=== PATIENT | male | born 1960 | race Caucasian/White ===

== ENCOUNTER 2021-01-24 01:12 | Observation (INO) | payer BC, OTHER, SELFPAY ==
--- OUTSIDE RECORDS SUMMARY | 2021-01-24 01:16 | XMS REPORT | Continuity of Care Document ---
:1960 Author Organization [facility] t Address [address] [place] [address] Care Team Providers Name Role Phone Unavailable Unavailable Unavailable Payers Payer Name Policy Type Policy Number Effective Date Expiration Date S ource Problems This patient has no known problems. Allergies, Adverse Reactions, Alerts Allergy Allergy Status Severity Reaction(s) Onset Inactive Treating Comm ents Source Name Type Date Date Clinician No Known DA Active U 2019-11 [facility] 0 [facility] 00:00: [facility] 00 are [place] Medications This patient has no known medications. Procedures This patient has no known procedures. Results Test Description Test Time Test Comments Results Result Comments Source TROPONIN-I 2020-09-20 12:27:00 Test Item Value Reference Range Interpretation Comme nts TROPONIN-I (test code = 0.03 ng/mL 0.00-0.03 N Shanell elation with serial results, TROPI) other cardiac m arkers andclinical findings is nec essary to determine the clinicalsig nificance of this result. Results using different methodologies s hould not be comparedto one another as quantitative re sults may vary by method. [id number] 10:08:00 Test Item Value Reference Range Interpretation Comments TROPONIN-I 0.03 ng/mL 0.00-0.03 N Correlation wit h serial (test code = results, other cardiac TROPI) markers andclin ical findings is necessary to determine the clinicalsignifi cance of this result. Results using different metho dologies should not be c omparedto one another as frieda titative results may raysa y by method. [id number] 07:45:00 Test Item Value Reference Range Interpretation Comments TROPONIN-I 0.03 ng/mL 0.00-0.03 N Correlation wit h serial (test code = results, other cardiac TROPI) markers andclin ical findings is necessary to determine the clinicalsignifi cance of this result. Results using different metho dologies should not be c omparedto one another as frieda titative results may raysa y by method. LIPID PROFILE (CORONARY RISK)2020-09-20 04:41:00 Test Item Value Reference Range Interpretation Comments TRIGLYCERIDES (test 324 mg/dL 35-160 H N-acetyl -p-benzoquinone code = TRIG) imine (NAPQI), a metabolite ofacetaminophen (paracetamol), may generate errone ously lowresults in s amples for patients th at have taken toxic dos esof acetaminophen (paracetamol). CHOLESTEROL (test 185 mg/dL 50-200 N code = CHOL) HDL CHOLESTEROL (test 34 mg/dL 29-71 N code = HDL) LIPOPROTEIN LDL MIS 86 MG/DL 10-130 N (test code = LDLC) CORONARY RISK FACTOR 5.44 (test code = RISK) CHOL/HDL RISK MALE: 1/2 AVG 3.43 FEMALE: 1/2 AV G 3.27 AVG 4.97 AV G 4.44 2X AVG 9.55 2X AV G 7.05 3X AVG 23.39 3X AVG 11.04~~~~~~~~~~ ~~~~~~~~ ~~~~~~~~~~~~~~~ ~~~~~~~~ ~~~~~~~~~~~~~~~ ~~~~Kelly onal Cholestero l Education (NCEP ) Guidelines:~~~~ ~~~~~~~~ ~~~~~~~~~~~~~~~ ~~~~~~~~ ~~~~~~~~~~~~~~~ ~~~~~~~~ ~~ HDL Cholesterol<4 0mg/dL: HDL Cholesterol (Major risk factor for CHD)>60mg/dL: H DL Cholesterol (Ne gative risk factor for CHD)40-59mg/dL: Borderline Risk LD L Cholesterol<1 00mg/dL: Desirable LDL-C [id number] 0-159mg/ dL: Borderline High Risk LDL-C [id number] 0-189mg/ dL: High risk L DL-C concentration H DL-LDL Cholesterol is affected by a number of factors suchas smoking, age and sex.~~~~~~~~~~~ ~~~~~~~~ ~~~~~~~~~~~~~~~ ~~~~~~~~ ~~~~~~~~~~~~~~~ ~~~ B-TYPE NATRIURETIC [id number] 04:17:00 Test Item Value Reference Range Interpretation Comments B-TYPE NATRIURETIC PEPTIDE (test 123 pg/mL 5-100 H code = BNP) - XR CHEST 1 [id number] 04:12:[address] [facility] 1960 Sex: MPatient Name: VAN AMARAL Unit No: [id number] EXAMS: CPT: [id number] XR CHEST 1 V [id number] PORTABLE CHEST, 09/20/2020. Comparison: None. CLINICAL: Palpitations. COMMENT: The heart, mediastinum, hilar regions and pulmonary vasculature appear within normal limits. The lungs are free of active disease. The bony thorax is intact. IMPRESSION: No evidence to suggest active cardiopulmonary disease. at 0412 Reported and signed by: Cayden Frederick MD CC: Technologist: Marek Siegel Fluoro Time: DAP (Gy m2): Air Kerma (mGy): Trscr Dt/Tm: 09/20/2020 (041) by:[email or web address] Orig Print D/T: S: 09/20/2020 (0415) BATCH NO: N/A Name: VAN AMARAL [facility] Roby Phys: James Thompson [address] [facility] : 1960 Age: 60 Sex: M Dashawn Ca Loc: T.ERS Exam Date: 09/20/2020 Status: REG ER PH: FAX: PAGE 1 Signed ReportCOMPREHENSIVE METABOLIC PANEL 2020-09-20 03:59:00 Test Item Value Reference Range Interpretation Comments SODIUM (test code 138 mmol/L 136-145 N = NA) POTASSIUM (test 4.2 MMOL/L 3.6-5.2 N code = K) CHLORIDE (test 107 MMOL/L 98-110 N code = CL) CARBON DIOXIDE 21 mEq/L 24-32 L (test code = CO2) GLUCOSE (test code 117 mg/dL 70-110 H = GLU) BLOOD UREA 14 mg/dL 7-18 N NITROGEN (test code = BUN) GLOMERULAR >=60 max >60 The estimated FILTRATION RATE estimate glomerular f iltration (test code = GFR) rate is co mputed usingpatient ra ce, age (>18), sex, and serum creatinin e. If anyof the neede d data elements are mi ssing the Laboratory cannot compute an evelin mation of the glomerul ar filtration rate . CREATININE (test 0.82 mg/dL 0.60-1.30 N code = CREAT) TOTAL PROTEIN 7.0 g/dL 6.0-8.3 N (test code = PROT) ALBUMIN (test code 4.0 g/dL 3.2-5.5 N = ALB) CALCIUM (test code 8.4 mg/dL 8.6-10.3 L = CA) BILIRUBIN TOTAL 0.5 mg/dL 0.2-1.0 N J-cddonb-t-b enzoquino (test code = BILT) ne imine (NAPQI), a metabolite ofacetaminophen (paracetamol), may generate errone ously lowresults in s amples for patients th at have taken toxi c dosesof acetami nophen (paracetamol). SGOT/AST (test 22 UNITS/L 10-42 N code = AST) SGPT/ALT (test 21 UNITS/L 10-40 N code = ALT) ALKALINE 74 UNITS/L 38-126 N PHOSPHATASE (test code = ALKP) [id number] 03:59:00 Test Item Value Reference Range Interpretation Comments MAGNESIUM (test code = MAG) 2.1 mg/dL 1.7-2.8 N THYROID STIMULATING [id number] 03:59:00 Test Item Value Reference Range Interpretation Comments THYROID STIMULATING HORMONE (test 2.80 mIU/mL 0.38-5.60 N code = TSH) [id number] 03:59:00 Test Item Value Reference Range Interpretation Comments ALCOHOL (test code = 16.0 mg/dl 0.0-80.0 N ALC) ~~~~~~~~~~~~~~~ ~~~~~~~ ~~~~~~~~~~~~~~~ ~~~~~~~ ~~~~~~ RESU LTS ARE TO BE USED FOR MEDICAL PURPOSES ONLY.F OR LEGAL PURPOSES THE SPECIMEN MUST B E COLLECTED BY A CHAINOF CUSTODY. LEGAL TESTING IS NOT PERFORME D BY THIS FACILITY. ~~~~~~~~~~~~~~~ ~~~~~~~ ~~~~~~~~~~~~~~~ ~~~~~~~ ~~~~~~ [id number]:41:00 Test Item Value Reference Range Interpretation Comments ALCOHOL (test code = 16.0 mg/dl 0.0-80.0 N ALC) ~~~~~~~~~~~~~~~ ~~~~~~~ ~~~~~~~~~~~~~~~ ~~~~~~~ ~~~~~~ RESU LTS ARE TO BE USED FOR MEDICAL PURPOSES ONLY.F OR LEGAL PURPOSES THE SPECIMEN MUST B E COLLECTED BY A CHAINOF CUSTODY. LEGAL TESTING IS NOT PERFORME D BY THIS FACILITY. ~~~~~~~~~~~~~~~ ~~~~~~~ ~~~~~~~~~~~~~~~ ~~~~~~~ ~~~~~~ COMPREHENSIVE METABOLIC [id number] 03:41:00 Test Item Value Reference Range Interpretation Comments SODIUM (test code = 138 mmol/L 136-145 N NA) POTASSIUM (test 4.2 MMOL/L 3.6-5.2 N code = K) CHLORIDE (test code 107 MMOL/L 98-110 N = CL) CARBON DIOXIDE 21 mEq/L 24-32 L (test code = CO2) GLUCOSE (test code 117 mg/dL 70-110 H = GLU) BLOOD UREA NITROGEN 14 mg/dL 7-18 N (test code = BUN) GLOMERULAR >=60 max >60 The estimated FILTRATION RATE estimate glomerular (test code = GFR) filtration rate is computed usingpatient ra ce, age (>18), sex, and serum creatinin e. If anyof the ne eded data elements a re missing the Laboratory sabas ot compute an estimation of t he glomerular filtration rate . CREATININE (test 0.82 mg/dL 0.60-1.30 N code = CREAT) TOTAL PROTEIN (test g/dL 6.0-8.3 code = PROT) ALBUMIN (test code g/dL 3.2-5.5 = ALB) CALCIUM (test code 8.4 mg/dL 8.6-10.3 L = CA) BILIRUBIN TOTAL mg/dL 0.2-1.0 (test code = BILT) SGOT/AST (test code UNITS/L 10-42 = AST) SGPT/ALT (test code UNITS/L 10-40 = ALT) ALKALINE UNITS/L 38-126 PHOSPHATASE (test code = ALKP) [id number] 03:41:00 Test Item Value Reference Range Interpretation Comments MAGNESIUM (test code = MAG) mg/dL 1.7-2.8 THYROID STIMULATING [id number] 03:41:00 Test Item Value Reference Range Interpretation Comments THYROID STIMULATING HORMONE (test mIU/mL 0.38-5.60 code = TSH) [id number] 03:41:00 Test Item Value Reference Range Interpretation Comments ALCOHOL (test code = ALC) mg/dl 0.0-80.0 COMPREHENSIVE METABOLIC [id number] 03:41:00 Test Item Value Reference Range Interpretation Comments SODIUM (test code 138 mmol/L 136-145 N = NA) POTASSIUM (test 4.2 MMOL/L 3.6-5.2 N code = K) CHLORIDE (test 107 MMOL/L 98-110 N code = CL) CARBON DIOXIDE 21 mEq/L 24-32 L (test code = CO2) GLUCOSE (test code 117 mg/dL 70-110 H = GLU) BLOOD UREA 14 mg/dL 7-18 N NITROGEN (test code = BUN) GLOMERULAR >=60 max >60 The estimated FILTRATION RATE estimate glomerular f iltration (test code = GFR) rate is co mputed usingpatient ra ce, age (>18), sex, and serum creatinin e. If anyof the neede d data elements are mi ssing the Laboratory cannot compute an evelin mation of the glomerul ar filtration rate . CREATININE (test 0.82 mg/dL 0.60-1.30 N code = CREAT) TOTAL PROTEIN 7.0 g/dL 6.0-8.3 N (test code = PROT) ALBUMIN (test code 4.0 g/dL 3.2-5.5 N = ALB) CALCIUM (test code 8.4 mg/dL 8.6-10.3 L = CA) BILIRUBIN TOTAL 0.5 mg/dL 0.2-1.0 N C-jniypm-y-b enzoquino (test code = BILT) ne imine (NAPQI), a metabolite ofacetaminophen (paracetamol), may generate errone ously lowresults in s amples for patients th at have taken toxi c dosesof acetami nophen (paracetamol). SGOT/AST (test 22 UNITS/L 10-42 N code = AST) SGPT/ALT (test 21 UNITS/L 10-40 N code = ALT) ALKALINE 74 UNITS/L 38-126 N PHOSPHATASE (test code = ALKP) [id number] 03:41:00 Test Item Value Reference Range Interpretation Comments MAGNESIUM (test code = MAG) 2.1 mg/dL 1.7-2.8 N THYROID STIMULATING [id number] 03:41:00 Test Item Value Reference Range Interpretation Comments THYROID STIMULATING HORMONE (test mIU/mL 0.38-5.60 code = TSH) LACTIC [id number] 03:40:00 Test Item Value Reference Range Interpretation Comments LACTIC ACID (test code = LACT) 1.40 mmol/L 0.5-2.2 N DRUGS OF ABUSE SCREEN [id number] 03:38:00 Test Item Value Reference Range Interpretation Comments UR COCAINE (test code = COCAU) NEGATIVE NEGATIVE UR METHAMPHETAMINE (test code = NEGATIVE NEGATIVE METHAMPHU) UR CANABINOIDS (test code = CANU) NEGATIVE NEGATIVE UR AMPHETAMINE (test code = AMPHU) NEGATIVE NEGATIVE UR BARBITURATE (test code = BARBQLU) NEGATIVE NEGATIVE UR BENZODIAZEPINE (test code = NEGATIVE NEGATIVE BENZU) METHADONE (test code = METHDU) NEGATIVE NEGATIVE PROPOXYPHENE SCREEN (test code = NEGATIVE NEGATIVE PROPXSQ) UR OPIATES QUAL (test code = NEGATIVE NEGATIVE OPIAQLU) OXYCODONE (test code = OXYCOD) NEGATIVE NEGATIVE UR TRICYCLICS (test code = TRICYCU) NEGATIVE NEGATIVE UR PHENCYCLIDINE (PCP) (test code = NEGATIVE NEGATIVE PHENCU) UR BUPRENORPHINE QUAL (test code = NEGATIVE NEGATIVE BUPRESCRT) COMPREHENSIVE METABOLIC [id number] 03:36:00 Test Item Value Reference Range Interpretation Comments SODIUM (test code = NA) 138 mmol/L 136-145 N POTASSIUM (test code = K) 4.2 MMOL/L 3.6-5.2 N CHLORIDE (test code = CL) 107 MMOL/L 98-110 N CARBON DIOXIDE (test code = CO2) 21 mEq/L 24-32 L GLUCOSE (test code = GLU) 117 mg/dL 70-110 H BLOOD UREA NITROGEN (test code = mg/dL 7-18 BUN) GLOMERULAR FILTRATION RATE (test >60 code = GFR) CREATININE (test code = CREAT) mg/dL 0.60-1.30 TOTAL PROTEIN (test code = PROT) g/dL 6.0-8.3 ALBUMIN (test code = ALB) g/dL 3.2-5.5 CALCIUM (test code = CA) 8.4 mg/dL 8.6-10.3 L BILIRUBIN TOTAL (test code = BILT) mg/dL 0.2-1.0 SGOT/AST (test code = AST) UNITS/L 10-42 SGPT/ALT (test code = ALT) UNITS/L 10-40 ALKALINE PHOSPHATASE (test code = UNITS/L 38-126 ALKP) [id number] 03:36:00 Test Item Value Reference Range Interpretation Comments MAGNESIUM (test code = MAG) mg/dL 1.7-2.8 THYROID STIMULATING [id number] 03:36:00 Test Item Value Reference Range Interpretation Comments THYROID STIMULATING HORMONE (test mIU/mL 0.38-5.60 code = TSH) [id number] 03:36:00 Test Item Value Reference Range Interpretation Comments ALCOHOL (test code = ALC) mg/dl 0.0-80.0 COMPREHENSIVE METABOLIC [id number] 03:34:00 Test Item Value Reference Range Interpretation Comments SODIUM (test code = NA) mmol/L 136-145 POTASSIUM (test code = K) 4.2 MMOL/L 3.6-5.2 N CHLORIDE (test code = CL) MMOL/L 98-110 CARBON DIOXIDE (test code = CO2) mEq/L 24-32 GLUCOSE (test code = GLU) mg/dL 70-110 BLOOD UREA NITROGEN (test code = mg/dL 7-18 BUN) GLOMERULAR FILTRATION RATE (test >60 code = GFR) CREATININE (test code = CREAT) mg/dL 0.60-1.30 TOTAL PROTEIN (test code = PROT) g/dL 6.0-8.3 ALBUMIN (test code = ALB) g/dL 3.2-5.5 CALCIUM (test code = CA) mg/dL 8.6-10.3 BILIRUBIN TOTAL (test code = BILT) mg/dL 0.2-1.0 SGOT/AST (test code = AST) UNITS/L 10-42 SGPT/ALT (test code = ALT) UNITS/L 10-40 ALKALINE PHOSPHATASE (test code = UNITS/L 38-126 ALKP) [id number] 03:34:00 Test Item Value Reference Range Interpretation Comments MAGNESIUM (test code = MAG) mg/dL 1.7-2.8 THYROID STIMULATING [id number] 03:34:00 Test Item Value Reference Range Interpretation Comments THYROID STIMULATING HORMONE (test mIU/mL 0.38-5.60 code = TSH) [id number] 03:34:00 Test Item Value Reference Range Interpretation Comments ALCOHOL (test code = ALC) mg/dl 0.0-80.0 CBC W/AUTO [id number] 03:32:00 Test Item Value Reference Range Interpretation Comments WHITE BLOOD CELL (test code = WBC) 8.54 K/mm3 5.0-12.0 N RED BLOOD CELL (test code = RBC) 5.38 M/mm3 4.70-6.10 N HEMOGLOBIN (test code = HGB) 15.6 G/DL 14.0-18.0 N HEMATOCRIT (test code = HCT) 45.3 % 38.8-50.0 N MEAN CELL VOLUME (test code = MCV) 84 fL 80-94 N MEAN CELL HGB (test code = MCH) 29.0 PGM 27-31 N MEAN CELL HGB CONCENTRATION (test 34.4 G/DL 33-37 N code = MCHC) RED CELL DISTRIBUTION WIDTH (test 13.1 % 11.6-16.2 N code = RDW) PLATELET COUNT (test code = PLT) 199 K/mm3 130-400 N MEAN PLATELET VOLUME (test code = 10.0 fl 7.4-10.4 N MPV) NEUTROPHIL % (test code = NT%) 55.9 % 43-65 N IMMATURE GRANULOCYTE % (test code 0.5 % 0.0-2.0 N = IG%) LYMPHOCYTE % (test code = LY%) 33.5 % 20.5-45.5 N MONOCYTE % (test code = MO%) 8.1 % 5.5-11.7 N EOSINOPHIL % (test code = EO%) 1.3 % 0.9-2.9 N BASOPHIL % (test code = BA%) 0.7 % 0.2-1.0 N NUCLEATED RBC % (test code = 0.0 % 0-1.0 N NRBC%) NEUTROPHIL # (test code = NT#) 4.78 K/mm3 2.2-4.8 N LYMPHOCYTE # (test code = LY#) 2.86 K/mm3 1.3-2.9 N MONOCYTE # (test code = MO#) 0.69 K/mm3 0.3-0.8 N EOSINOPHIL # (test code = EO#) 0.11 K/MM3 0.0-0.2 N BASOPHIL # (test code = BA#) 0.06 K/mm3 0.0-0.1 N URINALYSIS [id number] 03:30:00 Test Item Value Reference Range Interpretation Comments UA COLOR (test code = COLU) STRAW YELLOW UA APPEARANCE (test code = APPU) CLEAR CLEAR UA GLUCOSE DIPSTICK (test code = NEG MG/DL NEGATIVE DGLUU) UA BILIRUBIN DIPSTICK (test code NEG NEGATIVE = BILU) UA KETONE DIPSTICK (test code = NEG MG/DL NEGATIVE KETU) UA SPECIFIC GRAVITY (test code = 1.000 1.000-1.030 SGU) UA BLOOD DIPSTICK (test code = NEG NEGATIVE ALFONSO) UA PH DIPSTICK (test code = ABRAHAN) 5.0 4.5-8.5 UA PROTEIN DIPSTICK (test code = NEG MG/DL NEGATIVE PROU) UA UROBILINOGEN DIPSTICK (test NORMAL EU/dL <=1.0 code = URO) UA NITRITE DIPSTICK (test code = NEG NEGATIVE KIA) UA LEUKOCYTE ESTERASE DIPSTICK NEG NEGATIVE (test code = LEUU) URINALYSIS [id number] 03:30:00 Test Item Value Reference Range Interpretation Comments UA COLOR (test code = COLU) STRAW YELLOW UA APPEARANCE (test code = CLEAR CLEAR APPU) UA GLUCOSE DIPSTICK (test code NEG MG/DL NEGATIVE = DGLUU) UA BILIRUBIN DIPSTICK (test NEG NEGATIVE code = BILU) UA KETONE DIPSTICK (test code NEG MG/DL NEGATIVE = KETU) UA SPECIFIC GRAVITY (test code 1.000 1.000-1.030 = SGU) UA BLOOD DIPSTICK (test code = NEG NEGATIVE ALFONSO) UA PH DIPSTICK (test code = 5.0 4.5-8.5 ABRAHAN) UA PROTEIN DIPSTICK (test code NEG MG/DL NEGATIVE = PROU) UA UROBILINOGEN DIPSTICK (test NORMAL EU/dL <=1.0 code = URO) UA NITRITE DIPSTICK (test code NEG NEGATIVE = KIA) UA LEUKOCYTE ESTERASE DIPSTICK NEG NEGATIVE (test code = LEUU) UA WBC (test code = WBCU) 0-3 /HPF 0-3 UA RBC (test code = RBCU) 0-3 /HPF 0-3 UA BACTERIA (test code = BACU) NONE SEEN /HPF NONE SEEN UA SQUAMOUS CELLS (test code = NONE SEEN /HPF NONE-FEW SQU) UA MUCUS (test code = MUCU) RARE /LPF NONE-FEW TROPONIN I [id number] 03:26:00 Test Item Value Reference Range Interpretation Comments TROPONIN I RAPID 0.02 ng/mL 0.00-0.08 N ISTAT (test code = TROPONIN I TROPIRAP) CRITERIA0.00-0. 08 ng/mL - Negative>0.08 n g/mL - Positive The us e of serial sampling and te sting protocol is are commended practice.An emily vated troponin level alone is often not suffi cient fordiagnosis of myocardial infarction. Tro ponin results obtaine d by different assay s may vary.Evaluation of the extent of myoca rdial damage based on increase of troponin would be valid only if similar methodology is used.
[2021-01-24 01:30] LABS: Protime INR 0.93
[2021-01-24 01:32] LABS: Absolute Lymphocytes (CBC) 3.2 K/uL (0.7-4.9); Basophils % 1.3 % (0-1.3); Hematocrit 43.1 % (39.6-49.0); MPV 8.5 fL (7.6-11.3); RBC Red Blood Cell Count 5.18 M/uL (4.33-5.43)
[2021-01-24] MEDS ORDERED: dilTIAZem HCL 25 MG/5 ML VIAL IV ONE (01:35)
[2021-01-24] MEDS ORDERED: NA CHLORIDE 0.9% 1,000 ML ONE (01:35)
[2021-01-24 01:48] LABS: ALT/SGPT 35 U/L (12-78); AST/SGOT 20 U/L (15-37); Albumin 3.8 g/dL (3.4-5.0); Alkaline Phosphatase 94 U/L (45-117); BUN Blood Urea Nitrogen 17 mg/dL (7-18); Bicarbonate 26 mmol/L (21-32); Bilirubin Direct < 0.1 mg/dL (0-0.2); Bilirubin Total 0.3 mg/dL (0.2-1.0); Glucose Level 108 mg/dL (74-106); Magnesium 2.1 mg/dL (1.8-2.4); NT PRO-BNP 342 pg/mL (<125); Potassium 3.7 mmol/L (3.5-5.1); Protein, Total 7.3 g/dL (6.4-8.2); Sodium Level 142 mmol/L (136-145); Troponin (Emerg Dept Use Only) < 0.02 ng/mL (0.0-0.045)
[2021-01-24] MEDS ORDERED: ASPIRIN 81 MG CHEWABLE TABLET ONE (01:48)
--- NOTE | 2021-01-24 02:03 | ER ---
Nurse's Notes [facility] Name: Demetrius Calle Age: 60 yrs Sex: Male : 1960 Arrival Date: 01/24/2021 Time: 01:13 Bed 2 Private MD: Diagnosis: Chest pain, unspecified;Atrial Fibrillation with RVR Presentation: 01/24 01:15 Chief complaint: EMS states: Pt C/O chest tightness and chest pressure. Was diagnosed with Afib last year. Pt unsure if he took 120 mg Cardizem today. Coronavirus screen: Client denies travel out of the [place] in the last 14 days. At this time, the client does not indicate any symptoms associated with coronavirus-19. Ebola Screen: Patient negative for fever greater than or equal to 101.5 degrees Fahrenheit, and additional compatible Ebola Virus Disease symptoms Patient denies exposure to infectious person. Initial Sepsis Screen: Does the patient meet any 2 criteria? HR > 90 bpm. Does the patient have a suspected source of infection? No. Patient's initial sepsis screen is negative. Risk Assessment: Do you want to hurt yourself or someone else? Patient reports no desire to harm self or others. Onset of symptoms was January 24, 2021. 01:15 Method Of Arrival: EMS: [facility] 01:15 Acuity: ABIGAIL 3 Historical: - Allergies: 01:18 No Known Allergies; - Home Meds: 01:18 Cardizem Oral [Active]; Lisinopril Oral [Active]; - PMHx: 01:18 Afib; Hypertension; - Immunization history:: Adult Immunizations up to date. - Social history:: Smoking status: Patient/guardian denies using Patient uses Dip. Screenin:18 Abuse screen: Denies threats or abuse. Denies injuries from another. Nutritional screening: No deficits noted. Tuberculosis screening: No symptoms or risk factors identified. Fall Risk None identified. Assessment: 01:25 General: Appears in no apparent distress. comfortable, Behavior is calm, cooperative. mg2 Pain: Complains of pain in chest Pain does not radiate. Pain currently is 5 out of 10 on a pain scale. Quality of pain is described as aching, Pain began gradually. Neuro: Level of Consciousness is awake, alert, obeys commands, Oriented to person, place, time, situation. Cardiovascular: Capillary refill < 3 seconds Patient's skin is warm and dry. Respiratory: Airway is patent Respiratory effort is even, unlabored, Respiratory pattern is regular, symmetrical. GI: No signs and/or symptoms were reported involving the gastrointestinal system. : No signs and/or symptoms were reported regarding the genitourinary system. EENT: No signs and/or symptoms were reported regarding the EENT system. Derm: Skin is intact, is healthy with good turgor, Skin is pink, warm \T\ dry. normal. Musculoskeletal: Circulation, motion, and sensation intact. Capillary refill < 3 seconds. 02:04 Reassessment: advised for admission. mg2 Vital Signs: 01:15 BP 146 / 103; Pulse 166; Resp 18; Pulse Ox 97% on R/A; mg2 01:26 BP 151 / 101; Pulse 111 RA; Resp 18; Pulse Ox 100% on R/A; mg2 01:43 BP 158 / 82; Pulse 117; Resp 18; Temp 98.4(O); Pulse Ox 97% on R/A; Pain 5/10; mg2 01:44 Weight 122.47 kg; Height 6 ft. 3 in. (190.50 cm); mg2 02:39 BP 96 / 67; Pulse 150; Resp 18; Pulse Ox 96% on R/A; mg2 03:03 Pulse 136; mg2 03:31 BP 117 / 61; Pulse 134; Resp 18; Pulse Ox 96% on R/A; mg2 01:44 Body Mass Index 33.75 (122.47 kg, 190.50 cm) mg2 ED Course: 01:13 Patient arrived in ED. cl3 01:14 Matheus Romano RN is Primary Nurse. mg2 01:16 Ammon Vargas MD is Attending Physician. mh7 01:17 Triage completed. wh 01:21 Arm band placed on. mg2 01:26 Patient has correct armband on for positive identification. Placed in gown. Bed in low wh position. Call light in reach. Side rails up X 1. quality assurance monitor body on. Pulse ox on. NIBP on. 01:26 No provider procedures requiring assistance completed. Maintain EMS IV. Dressing mg2 intact. Good blood return noted. Site clean \T\ dry. Gauge \T\ site: 20 \T\ RAC. Patient maintains SpO2 saturation greater than 95% on room air. 01:30 XRAY Chest (1 view) In Process Unspecified. EDMS 02:01 Naye Holbrook MD is Hospitalizing Provider. 7 02:15 Urine collected: COVID swab sent to lab. Patient admitted, IV remains in place. mg2 Administered Medications: 01:25 Drug: Cardizem 20 mg Route: IVP; Site: right antecubital; mg2 02:15 Follow up: Response: No adverse reaction mg2 01:34 Drug: Aspirin Chewable Tablet 324 mg Route: PO; wh 02:15 Follow up: Response: No adverse reaction mg2 02:14 Drug: Cardizem 30 mg Route: PO; wh 03:03 Follow up: Response: No adverse reaction mg2 03:31 Drug: amiodarone 150 mg Route: IVP; Site: right antecubital; mg2 Outcome: 02:02 Decision to Hospitalize by Provider. mh7 03:19 Admitted to Med/surg accompanied by tech, via stretcher, room 206, with chart, Report mg2 called to REBEKA Tee 03:19 Condition: stable 03:19 Instructed on the need for admit, Demonstrated understanding of instructions. 03:32 Patient left the ED. mg2 Signatures: Dispatcher [employer] EDMS Gurmeet Whitten RN RN Matheus Romano RN RN [facility] Gui Martin3 Ammon Vargas MD MD mh7 Corrections: (The following items were deleted from the chart) 01:32 01:15 Chief complaint: EMS states: Pt C/O chest tightness and chest pressure. Was wh diagnosed with Afib last year. Pt unsure if he took Cardizem today 02:04 01:43 BP 158 / 82; Pulse 117bpm; Resp 18bpm; Pulse Ox 97% RA; Pain 5/10; mg2 mg2 02:40 02:39 BP 96 / 67; Pulse 130bpm; Resp 18bpm; Pulse Ox 96% RA; mg2 mg2
--- NOTE | 2021-01-24 02:03 | EDPHYS ---
Physician Documentation [facility] Name: Demetrius Calle Age: 60 yrs Sex: Male : 1960 Arrival Date: 01/24/2021 Time: 01:13 Bed 2 Private MD: ED Physician Ammon Vargas HPI: 01/24 01:26 This 60 yrs old Male presents to ER via EMS with complaints of Chest Pain. [facility] 01:26 The patient or guardian reports chest pain that is located primarily in the substernal mh7 area. Onset: last night. The pain does not radiate. Associated signs and symptoms: Pertinent positives: nausea, shortness of breath, Pertinent negatives: abdominal pain, cough, diaphoresis, dizziness, headache, lower extremity pain, lower extremity swelling, lightheadedness, near syncope, palpitations, recent travel, syncope, vomiting. The chest pain is described as a pressure, tightness. Duration: The patient or guardian reports multiple episodes, that are intermittent, that wax and wane, with no pattern. Modifying factors: The symptoms are alleviated by nothing. the symptoms are aggravated by nothing. Severity of pain: At its worst the pain was moderate last night, in the emergency department the pain has improved moderately. Historical: - Allergies: 01:18 No Known Allergies; - Home Meds: 01:18 Cardizem Oral [Active]; Lisinopril Oral [Active]; - PMHx: 01:18 Afib; Hypertension; - Immunization history:: Adult Immunizations up to date. - Social history:: Smoking status: Patient/guardian denies using Patient uses Dip. ROS: 01:26 Constitutional: Negative for fever, chills, and weight loss, Eyes: Negative for injury, mh7 pain, redness, and discharge, ENT: Negative for injury, pain, and discharge, Neck: Negative for injury, pain, and swelling, Back: Negative for injury and pain, : Negative for injury, bleeding, discharge, and swelling, MS/Extremity: Negative for injury and deformity, Skin: Negative for injury, rash, and discoloration, Neuro: Negative for headache, weakness, numbness, tingling, and seizure, Psych: Negative for depression, anxiety, suicide ideation, homicidal ideation, and hallucinations, Allergy/Immunology: Negative for hives, rash, and allergies, Endocrine: Negative for neck swelling, polydipsia, polyuria, polyphagia, and marked weight changes, Hematologic/Lymphatic: Negative for swollen nodes, abnormal bleeding, and unusual bruising. Exam: 01:26 Constitutional: This is a well developed, well nourished patient who is awake, alert, mh7 and in no acute distress. Head/Face: Normocephalic, atraumatic. Eyes: Pupils equal round and reactive to light, extra-ocular motions intact. Lids and lashes normal. Conjunctiva and sclera are non-icteric and not injected. Cornea within normal limits. Periorbital areas with no swelling, redness, or edema. Neck: Trachea midline, no thyromegaly or masses palpated, and no cervical lymphadenopathy. Supple, full range of motion without nuchal rigidity, or vertebral point tenderness. No Meningismus. Chest/axilla: Normal chest wall appearance and motion. Nontender with no deformity. No lesions are appreciated. 01:26 Respiratory: Lungs have equal breath sounds bilaterally, clear to auscultation and percussion. No rales, rhonchi or wheezes noted. No increased work of breathing, no retractions or nasal flaring. Abdomen/GI: Soft, non-tender, with normal bowel sounds. No distension or tympany. No guarding or rebound. No evidence of tenderness throughout. Back: No spinal tenderness. No costovertebral tenderness. Full range of motion. Skin: Warm, dry with normal turgor. Normal color with no rashes, no lesions, and no evidence of cellulitis. MS/ Extremity: Pulses equal, no cyanosis. Neurovascular intact. Full, normal range of motion. Neuro: Awake and alert, GCS 15, oriented to person, place, time, and situation. Cranial nerves II-XII grossly intact. Motor strength 5/5 in all extremities. Sensory grossly intact. Cerebellar exam normal. Normal gait. Psych: Awake, alert, with orientation to person, place and time. Behavior, mood, and affect are within normal limits. 01:26 Cardiovascular: Rate: tachycardic, Rhythm: irregularly irregular, Pulses: no pulse deficits are appreciated, Heart sounds: normal, normal S1and S2, Edema: is not appreciated, JVD: is not appreciated. Vital Signs: 01:15 BP 146 / 103; Pulse 166; Resp 18; Pulse Ox 97% on R/A; mg2 01:26 BP 151 / 101; Pulse 111 RA; Resp 18; Pulse Ox 100% on R/A; mg2 01:43 BP 158 / 82; Pulse 117; Resp 18; Temp 98.4(O); Pulse Ox 97% on R/A; Pain 5/10; mg2 01:44 Weight 122.47 kg; Height 6 ft. 3 in. (190.50 cm); mg2 02:39 BP 96 / 67; Pulse 150; Resp 18; Pulse Ox 96% on R/A; mg2 03:03 Pulse 136; mg2 03:31 BP 117 / 61; Pulse 134; Resp 18; Pulse Ox 96% on R/A; mg2 01:44 Body Mass Index 33.75 (122.47 kg, 190.50 cm) mg2 MDM: 01:59 Differential diagnosis: abnormal EKG, acute myocardial infarction, acute pericarditis, mh7 anxiety, coronary artery disease chest wall pain, congestive heart failure costochondritis, myocarditis, pericarditis, pneumonia. HEART Score: History: Highly Suspicious (2), ECG: Non specific repolarization disturbance / LBTB / PM (1), Age: > 45 and < 65 years (1), Risk Factors: 1 or 2 risk factors (1), [Hypertension] [Active Smoker] Troponin: < or = 1 x Normal Limit (0), Total Score = 5. The patient was given aspirin in the Emergency Department. Data reviewed: vital signs, nurses notes, EMS record, lab test result(s), cardiac enzymes, CBC, electrolytes, EKG, radiologic studies, plain films. Data interpreted: Pulse oximetry: on room air is 97 %. Interpretation: normal. Counseling: I had a detailed discussion with the patient and/or guardian regarding: the historical points, exam findings, and any diagnostic results supporting the discharge/admit diagnosis, the presence of at least one elevated blood pressure reading (>120/80) during this emergency department visit, lab results, radiology results, the need for further work-up and treatment in the hospital. Response to treatment: the patient's symptoms have markedly improved after treatment. 02:02 Patient medically screened. 7 01/24 01:15 Order name: Basic Metabolic Panel; Complete Time: 01:49 mg2 01/24 01:15 Order name: CBC with Diff; Complete Time: 01:36 mg2 01/24 01:15 Order name: LFT's; Complete Time: 01:49 [facility] 01/24 01:15 Order name: Magnesium; Complete Time: 01:49 [facility] 01/24 01:15 Order name: NT PRO-BNP; Complete Time: 01:49 [facility] 01/24 01:15 Order name: PT-INR; Complete Time: 01:36 [facility] 01/24 01:15 Order name: Troponin (emerg Dept Use Only); Complete Time: 01:49 [facility] 01/24 01:36 Order name: TSH [facility] 01/24 01:54 Order name: D-Dimer [facility] 01/24 02:03 Order name: COVID-19 : Document "Date of Symptom Onset" if Symptomatic. [facility] 01/24 02:14 Order name: UDS [facility] 01/24 02:14 Order name: Urine Drug Screen [facility] 01/24 02:18 Order name: Urine Dipstick--Ancillary (enter results) ms 01/24 01:15 Order name: XRAY Chest (1 view) [facility] 01/24 02:25 Order name: Thyroid Stimulating Hormone [facility] 01/24 02:25 Order name: Comprehensive Metabolic Panel [facility] 01/24 02:25 Order name: Comprehensive Metabolic Panel [facility] 01/24 02:25 Order name: Lipid Profile [facility] 01/24 02:25 Order name: Lipid Profile [facility] 01/24 02:25 Order name: Magnesium [facility] 01/24 02:25 Order name: Magnesium [facility] 01/24 02:25 Order name: Magnesium [facility] 01/24 02:25 Order name: Magnesium [facility] 01/24 02:25 Order name: Troponin I [facility] 01/24 02:25 Order name: Troponin I [facility] 01/24 02:25 Order name: Troponin I [facility] 01/24 02:49 Order name: T4 Free [facility] 01/24 03:06 Order name: SARS-COV-2 RT PCR [facility] 01/24 01:15 Order name: EKG; Complete Time: 01:16 [facility] 01/24 01:15 Order name: Cardiac monitoring; Complete Time: 01:26 [facility] 01/24 01:15 Order name: EKG - Nurse/Tech; Complete Time: 01:26 [facility] 01/24 01:15 Order name: IV Saline Lock; Complete Time: 01:26 [facility] 01/24 01:15 Order name: Labs collected and sent; Complete Time: 01: mg2 01/24 01:15 Order name: O2 Per Protocol; Complete Time: : mg2 01/24 01:15 Order name: O2 Sat Monitoring; Complete Time: mg2 01/24 01:23 Order name: Urine Dipstick-Ancillary (obtain specimen); Complete Time: 02:14 mh7 01/24 02:25 Order name: CONS Pharmacy Consult EDMT 01/24 02:25 Order name: CONS Physician Consult EDMT 01/24 02:25 Order name: Heart Healthy EDMS Administered Medications: 01:25 Drug: Cardizem 20 mg Route: IVP; Site: right antecubital; mg2 02:15 Follow up: Response: No adverse reaction mg2 01:34 Drug: Aspirin Chewable Tablet 324 mg Route: PO; 02:15 Follow up: Response: No adverse reaction mg2 02:14 Drug: Cardizem 30 mg Route: PO; 03:03 Follow up: Response: No adverse reaction mg2 03:31 Drug: amiodarone 150 mg Route: IVP; Site: right antecubital; mg2 Disposition: 01/24/21 02:02 Hospitalization ordered by Naye Holbrook for Inpatient Admission. Preliminary diagnosis are Chest pain, unspecified, Atrial Fibrillation with RVR. - Bed requested for Telemetry/MedSurg (Inpatient). - Status is Inpatient Admission. mg2 - Condition is Stable. - Problem is new. - Symptoms have improved. Signatures: Dispatcher [employer] EDMT Fely Maciel RN RN Gurmeet Whitten RN RN Matheus Romano RN RN [facility] Ammon Vargas MD MD mh7 Corrections: (The following items were deleted from the chart) 02:22 02:04 CORONAVIRUS ordered. [facility] 03:10 02:02 Hospitalization Ordered by Naye Holbrook MD for Inpatient Admission. Preliminary diagnosis is Chest pain, unspecified; Atrial Fibrillation with RVR. Bed requested for Telemetry/MedSurg (Inpatient). Status is Inpatient Admission. Condition is Stable. Problem is new. Symptoms have improved. mh7 03:32 03:10 01/24/2021 02:02 Hospitalization Ordered by Naye Holbrook MD for Inpatient mg2 Admission. Preliminary diagnosis is Chest pain, unspecified; Atrial Fibrillation with RVR. Bed requested for Telemetry/MedSurg (Inpatient). Status is Inpatient Admission. Condition is Stable. Problem is new. Symptoms have improved. mw
--- NOTE | 2021-01-24 02:17 | P.HP ---
Certification for Inpatient Patient admitted to: Observation With expected LOS: <2 Midnights Patient will require the following post-hospital care: None Practitioner: I am a practitioner with admitting privileges, knowledge of patient current condition, hospital course, and medical plan of care. Services: Services provided to patient in accordance with Admission requirements found in Title 42 Section 412.3 of the Code of Federal Regulations Patient History Date of Service: 01/24/21 Reason for admission: Chest pressure and palpitation History of Present Illness: 60-year-old male past medical history of hypertension, atrial fibrillation diagnosed since last 1 year, on Cardizem admitted now because of onset of chest pressure, nonradiating associated with feeling of chest tightness. He also admits to similar feeling with palpitations similar to his previous at the time of diagnosis. At the time of presentation at the ED his heart rate was elevated in the 150s to 170s. He received IV Cardizem with improvement heart rate to the 110s now. He denies any dizziness. He denies any shortness of breath. He is currently not taking any chronic anticoagulation. He has been admitted for AFib with RVR rule out acute coronary syndrome. Initial cardiac enzymes were negative. Chest x-ray showed mild pulmonary edema - Past Medical/Surgical History -: Atrial fibrillation -: Hypertension Past Surgical History: Reviewed- Non-Contributory - Social History Smoking Status: Light Tobacco smoker (1-9 cigarettes/day) Counseled patient to stop smoking for: less than 10 minutes Smoking therapy provided: Yes Patient receptive to therapy: Yes Alcohol use: No CD- Drugs: No Caffeine use: No Place of Residence: Home Review of Systems 10-point ROS is otherwise unremarkable Physical Examination - Physical Exam General: Alert, In no apparent distress, Oriented x3 HEENT: Atraumatic, Normocephalic, PERRLA Neck: Supple, 2+ carotid pulse no bruit, JVD not distended Respiratory: Clear to auscultation bilaterally, Normal air movement Cardiovascular: No edema, Normal S1 S2, No rubs, Abnormal pulses, Irregular heart rate/rhythm Capillary refill: <2 Seconds Gastrointestinal: Normal bowel sounds, Soft and benign, Non-distended, No tenderness, No masses Musculoskeletal: No clubbing, No swelling Integumentary: No rashes, No breakdown Neurological: Normal gait, Normal speech, Normal strength at 5/5 x4 extr External genitalia: No edema, No lesions - Studies Laboratory Data (last 24 hrs) 01/24/21 01:10: PT 10.7, INR 0.93 01/24/21 01:10: WBC 8.10, Hgb 14.9, Hct 43.1, Plt Count 172 01/24/21 01:10: Sodium 142, Potassium 3.7, BUN 17, Creatinine 1.03, Glucose 108 H, Magnesium 2.1, Total Bilirubin 0.3, AST 20, ALT 35, Alkaline Phosphatase 94 Imagings Data: Chest x-ray-mild pulmonary congestive changes Assessment and Plan - Problems (Diagnosis) (1) Atrial fibrillation with RVR Current Visit: Yes Status: Acute (2) Hypertension Current Visit: Yes Status: Acute (3) Tobacco use Current Visit: Yes Status: Acute (4) Chest pain Current Visit: Yes Status: Acute - Advance Directives Does patient have a Living Will: No Does patient have a Durable POA for Healthcare: No Physician Review: Patient Assessed, Agree with Above Assessment and Plan Physician Review Additional Text: # atrial fibrillation with RVR-will do oral Cardizem loading start as Cardizem 30 mg q.6 Given apparent failure of Cardizem, will add amiodarone 400 mg b.i.d. loading dose We obtain Tsh, magnesium level Start Eliquis Admit to telemetry and monitor all May need cardiology consult Hypertension-follow with Cardizem use Continue lisinopril Chronic tobacco use-nicotine patch DVT prophylaxis-plan for start Eliquis Advanced directive-full code Time Spent Managing Pts Care (In Minutes): 65
[2021-01-24 02:19] LABS: Urine Blood NEGATIVE (NEG); Urine Glucose NEGATIVE (NEG); Urine Protein NEGATIVE (NEG)
[2021-01-24] MEDS ORDERED: MORPHINE 2 MG/ML SYR IV PRN (02:19)
[2021-01-24] MEDS ORDERED: ALBUTEROL 2.5 MG/3 ML NEB SOL NEB PRN ×2 (02:19→08:00)
[2021-01-24] MEDS ORDERED: ACETAMINOPHEN 500 MG TAB PO PRN (02:19)
[2021-01-24] MEDS ORDERED: ONDANSETRON 4 MG/2 ML VIAL IV PRN (02:19)
[2021-01-24] MEDS: DILTIAZEM HCL 60 MG TAB PO SCH ×3 (02:22→11:50)
[2021-01-24] MEDS: AMIODARONE HCL 200 MG TAB PO SCH ×2 (02:22→08:40)
[2021-01-24] MEDS ORDERED: DILTIAZEM HCL 60 MG TAB ONE (02:24)
[2021-01-24 02:33] LABS: Barbiturates NEGATIVE (NEGATIVE); Benzodiazepines NEGATIVE (NEGATIVE); Cocaine NEGATIVE (NEGATIVE); METHAMPHETAM NEGATIVE (NEGATIVE); Methadone NEGATIVE (NEGATIVE); Opiates NEGATIVE (NEGATIVE); Phencyclidine NEGATIVE (NEGATIVE); THC Cannibis NEGATIVE (NEGATIVE)
[2021-01-24] MEDS ORDERED: HYDRALAZINE HCL 20 MG/ML VIAL IV PRN (02:35)
[2021-01-24 02:36] LABS: Thyroid Stimulating Hormone 4.93 uIU/mL (0.360-3.740)
[2021-01-24] MEDS ORDERED: AMIODARONE HCL 150 MG/3 ML INJ IV ONE ×2 (03:40→05:29)
[2021-01-24] MEDS ORDERED: AMIODARONE HCL 150 MG in D5W 100 ML IV STA (04:51)
[2021-01-24 04:52] LABS: Magnesium 2.1 mg/dL (1.8-2.4); Thyroid Stimulating Hormone 3.55 uIU/mL (0.360-3.740); Troponin I 0.08 ng/mL (0.0-0.045)
[2021-01-24] MEDS ORDERED: NA CHLORIDE 0.9% 100 ML ONE (05:16)
[2021-01-24] MEDS ORDERED: NA CHLORIDE 0.9% 0 ML ONE (05:20)
[2021-01-24] MEDS ORDERED: D5W 0 ML IV ONE (05:32)
[2021-01-24] MEDS ORDERED: D5W 100 ML IV ONE (05:35)
[2021-01-24 06:08] VITALS: BMI 34.7
--- NOTE | 2021-01-24 08:13 | RAD REPORT ---
EXAM DESCRIPTION: Nithin Single View01/24/2021 1:31 am CLINICAL HISTORY: Chest pain COMPARISON: none FINDINGS: The lungs appear clear of acute infiltrate. The heart is probably borderline enlarged IMPRESSION: No acute abnormalities displayed
--- NOTE | 2021-01-24 08:36 | CON ---
Date of Consultation: 01/24/2021 Reason For Consultation: Atrial fibrillation and chest pain as well as nausea and shortness of breat h. History Of Present Illness: Mr. Calle is a 60-year-old male. He has a history of chronic atrial f ibrillation, that seem to be paroxysmal. He has a history of hypertension. Has seen doctors in [place], [place] where he underwent a normal echocardiogram and normal stress test. According to his medic al regimen he is supposed to be on amiodarone 400 mg 1 p.o. b.i.d., as well as Eliquis, inhalers, hyd ralazine, diltiazem 60 mg every 6 hours. I am not really so sure how compliant about his medicines h e is. He stated that yesterday he could not remember if he took his medicines or not. He came in wi th atrial fibrillation, rapid ventricular response, chest pressure, nausea and shortness of breath. His troponin was 0.08. His BNP was 342. Today he is back to normal rhythm. He is not having any sy mptoms today. Past Medical History: As stated above his. Allergies: UNKNOWN Review of Systems: Negative. Social History: Positive for alcohol and tobacco. Medications: At home are listed earlier. Physical Examination: This morning, his vital signs are stable. He is afebrile. HEENT: Negative. Neck: Supple without lymphadenopathy, JVD, thyromegaly, or bruit. Chest: Clear to auscultation and percussion. Cardiac: Revealed a regular rhythm and rate. No murmurs, gallops, or rubs. Abdomen: Benign. Extremities: Revealed no clubbing, cyanosis, or edema. Diagnostic Data: As stated earlier. Impression And Plan: Paroxysmal atrial fibrillation, rapid ventricular response, chest pressure seco ndary to atrial fibrillation. His troponin elevation is secondary to his atrial fibrillation. He is noncompliant with medication and that was discussed with him in detail. He has had a normal echocar diogram and normal stress test in [place] less than a year ago. I will continue the amiodarone at 20 0 mg b.i.d. Continue his Eliquis. Continue his diltiazem. I think as long as he is compliant he sh ould do well. We will be happy to see him as an outpatient in the office. I will make arrangement f or that. He does not need a heart catheterization, this is acute coronary syndrome. His troponin el evation is secondary to demand ischemia secondary to hypertension and rapid atrial fibrillation. His other problem is hypertension that is well controlled for now. From my standpoint, he can continue his home medicine. Discussed the use of alcohol and hopefully cut down on his intake. I discussed c ompliance with him. He can go home. I will see him in the office in the next 2 weeks. CORNELIUS/ANGELINA Voice ID: [id number] Report ID: [id number]
[2021-01-24] MEDS ORDERED: APIXABAN 5 MG TABLET PO SCH (09:00)
[2021-01-24] MEDS ORDERED: NICOTINE 21 MG/PAT TD SCH (09:00)
[2021-01-24 09:18] VITALS: O2SAT 95
--- NOTE | 2021-01-24 10:47 | P.DS ---
Admission Date: 01/24/21 Discharge Date: 01/24/21 Reason for Admission: Chest pressure and palpitation Consultations: cardiology - Problems (1) Atrial fibrillation with RVR Status: Acute (2) Chest pain Status: Resolved Qualifiers: Chest pain type: unspecified Qualified Code(s): R07.9 - Chest pain, unspecified (3) Hypertension Status: Chronic Qualifiers: Hypertension type: essential hypertension Qualified Code(s): I10 - Ess[facility]ia l (primary) hypertension (4) Tobacco use Status: Chronic Brief History of Present Illness: 60 yo male with HTN, chronic paroxysmal atrial fibrillation diagnosed 1 year ago on cardizem here for nonradiating chest pressure, tightness, and palpitations. HR elevated to 150-170s. Denied dizziness, SOB. Was not taking any chronic anticoagulation. Was admitted for afib with RVR and to rule out ACS. Initial troponins 0.08, BNP 342 and CXR showed pulmonary edema. Less than a year ago he had normal ECHO and stress test in [place]. Hospital Course: Patient admitted to telemetry. Started cardizem and added amiodarone and eliquis. Magnesium was stable. TSH normal. Cardiology was consulted. Per cardiology, troponin elevation secondary to demand ischema from hypertension and afib. Normal echo and stress test less than a year ago. Will continue amiodarone, eliquis, and diltiazem. Will see cardiology outpatient in 2 weeks. Does not need heart cath. Patient's symptoms resolved. Heart rate controlled to the 70s. <Eddi Mathis - Last Filed: 01/24/21 10:57> Admission Date: 01/24/21 Discharge Date: 02/04/21 Hospital Course: Patient is stable for discharge with outpatient follow with Cardiology in 1-2 weeks. Continue on current cardiac medications. Return to the ER if symptoms worsen. <Gina Carter - Last Filed: 02/04/21 17:28> Disposition: ROUTINE DISCHARGE Discharge Condition: GOOD Vital Signs/Physical Exam: Temp Pulse Resp BP Pulse Ox 97.1 F 69 18 179/68 H 95 01/24/21 08:00 01/24/21 08:00 01/24/21 08:00 01/24/21 08:00 01/24/21 08:00 General: Alert, In no apparent distress, Oriented x3, Cooperative HEENT: Atraumatic, Normocephalic, PERRLA, Mucous membr. moist/pink, EOMI, Sclerae nonicteric Neck: Supple, 2+ carotid pulse no bruit, JVD not distended, No Thyromegaly, No LAD Respiratory: Clear to auscultation bilaterally, Diminished Cardiovascular: No edema, Normal pulses, No gallops, No rubs, Other (atrial fibrillation ), Irregular heart rate/rhythm Capillary refill: <2 Seconds Gastrointestinal: Normal bowel sounds, Soft and benign, Non-distended, No ascites, No tenderness, No masses, No rebound, No guarding Musculoskeletal: No clubbing, No swelling, No contractures, No erythema, No tenderness, No warmth Integumentary: No rashes, No breakdown, No significant lesion, No tenderness/swelling, No erythema, No warmth, No cyanosis Neurological: Normal gait, Normal speech, Normal strength at 5/5 x4 extr, Normal tone, Sensation intact, Cranial nerves 3-12 intact, Normal affect Lymphatics: No axilla or inguinal lymphadenopathy Laboratory Data at Discharge: WBC 8.10 K/uL (4.3-10.9) 01/24/21 01:10 Hgb 14.9 g/dL (13.6-17.9) 01/24/21 01:10 Hct 43.1 % (39.6-49.0) 01/24/21 01:10 Plt Count 172 K/uL (152-406) 01/24/21 01:10 PT 10.7 SECONDS (9.5-12.5) 01/24/21 01:10 INR 0.93 01/24/21 01:10 Sodium 142 mmol/L (136-145) 01/24/21 01:10 Potassium 3.7 mmol/L (3.5-5.1) 01/24/21 01:10 BUN 17 mg/dL (7-18) 01/24/21 01:10 Creatinine 1.03 mg/dL (0.55-1.3) 01/24/21 01:10 Glucose 108 mg/dL (74-106) H 01/24/21 01:10 Magnesium 2.1 mg/dL (1.8-2.4) 01/24/21 04:07 Total Bilirubin 0.3 mg/dL (0.2-1.0) 01/24/21 01:10 AST 20 U/L (15-37) 01/24/21 01:10 ALT 35 U/L (12-78) 01/24/21 01:10 Alkaline Phosphatase 94 U/L (45-117) 01/24/21 01:10 Troponin I 0.11 ng/mL (0.0-0.045) H 01/24/21 07:27 <Eddi Mathis S - Last Filed: 01/24/21 10:57> Vital Signs/Physical Exam: Temp Pulse Resp BP Pulse Ox 96.9 F 98 H 20 123/68 96 01/24/21 12:00 01/24/21 12:00 01/24/21 12:00 01/24/21 12:00 01/24/21 12:00 Laboratory Data at Discharge: WBC 8.10 K/uL (4.3-10.9) 01/24/21 01:10 Hgb 14.9 g/dL (13.6-17.9) 01/24/21 01:10 Hct 43.1 % (39.6-49.0) 01/24/21 01:10 Plt Count 172 K/uL (152-406) 01/24/21 01:10 PT 10.7 SECONDS (9.5-12.5) 01/24/21 01:10 INR 0.93 01/24/21 01:10 Sodium 142 mmol/L (136-145) 01/24/21 01:10 Potassium 3.7 mmol/L (3.5-5.1) 01/24/21 01:10 BUN 17 mg/dL (7-18) 01/24/21 01:10 Creatinine 1.03 mg/dL (0.55-1.3) 01/24/21 01:10 Glucose 108 mg/dL (74-106) H 01/24/21 01:10 Magnesium 2.1 mg/dL (1.8-2.4) 01/24/21 04:07 Total Bilirubin 0.3 mg/dL (0.2-1.0) 01/24/21 01:10 AST 20 U/L (15-37) 01/24/21 01:10 ALT 35 U/L (12-78) 01/24/21 01:10 Alkaline Phosphatase 94 U/L (45-117) 01/24/21 01:10 Troponin I 0.11 ng/mL (0.0-0.045) H 01/24/21 07:27 <Gina Carter - Last Filed: 02/04/21 17:28> Diet: AHA Time spent managing pt's care (in minutes): 70 <Eddi Mathis - Last Filed: 01/24/21 10:57> <Gina Carter - Last Filed: 02/04/21 17:28> Home Medications: Amiodarone HCl [Cordarone*] 200 mg PO BID #60 tab 01/24/21 Apixaban [Eliquis] 5 mg PO BID #60 tablet 01/24/21 Diltiazem Tab [Cardizem Tab] 60 mg PO Q6HR #240 tab 01/24/21 Losartan Potassium 50 mg PO DAILY #30 tablet 01/24/21 New Medications: Diltiazem Tab [Cardizem Tab] 60 mg PO Q6HR #240 tab Amiodarone HCl [Cordarone*] 200 mg PO BID #60 tab Apixaban [Eliquis] 5 mg PO BID #60 tablet Losartan Potassium 50 mg PO DAILY #30 tablet Physician Discharge Instructions: OK TO DC IV AND DC HOME FOLLOW-UP WITH PRIMARY CARE PROVIDER IN 1-2 WEEKS FOLLOW-UP WITH CARDIOLOGY IN 1-2 WEEKS RETURN TO THE ER IF symptoms worsen CALL or TEXT DR. CARTER AT [phone] IF ANY QUESTIONS REGARDING HOSPITAL STAY. PLEASE CALL THE FLOOR AT [phone] IF ANY MEDICATION OR NURSING QUESTIONS. Followup: Kleber Young MD [ACTIVE - CAN ADMIT] - NONE,NONE [Primary Care Provider] -
[2021-01-24 14:55] VITALS: BP 123/68; TEMP 96.9
[2021-01-24] MEDS ORDERED: AMIODARONE HCL 200 MG TAB PO SCH (21:00)
--- NOTE | 2021-01-25 17:12 | EKG ---
Test Date: 2021-01-24 Test Time: 01:10:49 Spear Fisher: MEASUREMENT RESULTS: Intervals: Rate: 164 MS: QRSD: 86 QT: 274 QTc: 452 Dearing: P: MS: QRS: -68 T: 110 INTERPRETIVE STATEMENTS: Atrial fibrillation with rapid ventricular response Left axis deviation Marked ST abnormality, possible inferior subendocardial injury Abnormal ECG No previous ECG available for comparison Electronically Signed On 01-25-21 17:06:41 [employer] by Kleber Young
== END 2021-01-24 15:33 | disposition home or self-care (01) ==
LOC: ER 01:12 → ERHOLD 02:28 → 2ND 03:20
PROVIDERS: ADMIT Internal Medicine; ATTEND Hospitalist
DX: R07.89 Other chest pain (principal); I24.8 Other forms of acute ischemic heart disease; I48.20 Chronic atrial fibrillation, unspecified; I10 Essential (primary) hypertension; Z20.822 Contact with and (suspected) exposure to COVID-19; R94.31 Abnormal electrocardiogram [ECG] [EKG]; Z91.14 Patient's other noncompliance with medication regimen; F17.210 Nicotine dependence, cigarettes, uncomplicated
CPT/HCPCS: 36415; 71045; 80048; 80076; 80307; 81003; 83735; 83880; 84439; 84443; 84484; 85025; 85379; 85610; 93005; 94760; 96374; 96375; 99285; G0378; J0282; J7030; J7050; U0003